=== PATIENT | female | born 1950 | race African-American/Black ===

== ENCOUNTER 2019-07-23 14:01 | Emergency (ER) | payer MEDICARE ==
[~2019-07-23] VITALS: Ht 157.5 cm; Wt 77.3 kg
[2019-07-24 07:34] VITALS: BP 121/60
== END 2019-07-24 07:37 | disposition home or self-care (01) ==
LOC: ER 14:01
DX: K05.10 Chronic gingivitis, plaque induced (principal); K11.20 Sialoadenitis, unspecified; K13.79 Other lesions of oral mucosa; I10 Essential (primary) hypertension; Z90.710 Acquired absence of both cervix and uterus
CPT/HCPCS: 70490; 99284